=== PATIENT | male | born 1965 | race Caucasian/White ===

== ENCOUNTER 2022-09-03 07:58 | Day surgery (SDC) | payer OTHER, MEDICAID ==
[2022-09-01 11:58] LABS: MEAN CORPUSCULAR HEMOGLOBIN 29.4 PG (27.0-31.0); MEAN CORPUSCULAR HGB CONC 32.5 g/dL (33.0-36.5); MEAN CORPUSCULAR VOLUME 90.4 FL (78-98); MEAN PLATELET VOLUME 8.4 FL (7.4-10.4); NEUTROPHILS % (AUTO) 68.2 % (42-75); PRE OP HEMOGLOBIN 12.4 g/dL (14.0-17.9); PRE OP PLATELET COUNT 249 X10'3 (140-440); RED CELL DISTRIBUTION WIDTH 15.2 % (11.5-14.5)
[2022-09-01 11:59] LABS: BASOPHILS # (AUTO) 0.1 X10'3 (0-0.2); BASOPHILS % (AUTO) 0.8 % (0-1); EOSINOPHILS # (AUTO) 0.2 X10'3 (0-0.9); EOSINOPHILS % (AUTO) 2.8 % (0-6); LYMPHOCYTES # (AUTO) 1.6 X10'3 (1.1-4.8); MONOCYTES # (AUTO) 0.7 X10'3 (0-0.9); MONOCYTES % (AUTO) 8.2 % (2-12); NEUTROPHILS # (AUTO) 5.6 X10'3 (1.8-7.7)
[2022-09-01 12:13] LABS: ALBUMIN 3.5 G/DL (3.4-5.0); ALBUMIN/GLOBULIN RATIO 0.9 (1.1-1.5); ALKALINE PHOSPHATASE 105 IU/L (46-116); BLOOD UREA NITROGEN 11 MG/DL (7-18); BUN/CREATININE RATIO 14.7 (5.4-32.0); CALCIUM 8.4 MG/DL (8.5-10.1); CHLORIDE 103 MMOL/L (99-107); CREATININE 0.75 MG/DL (0.60-1.10); PRE OP ALT 26 U/L (30-65); PRE OP ANION GAP 4 (8-16); PRE OP AST 20 U/L (10-37); PRE OP BILIRUB, TOTAL 0.2 MG/DL (0.0-1.0); PRE OP GLUCOSE 96 MG/DL (70-104); PRE OP POTASSIUM 4.4 MMOL/L (3.4-5.1); PRE OP SODIUM 137 MMOL/L (135-145); TOTAL CARBON DIOXIDE 29.9 MMOL/L (24-32); TOTAL PROTEIN 7.5 G/DL (6.4-8.2); eGFR > 90 ML/MIN
[2022-09-03] VITALS (7 sets, daily range): BP systolic 102–121; BP diastolic 66–83
[~2022-09-03] VITALS: Ht 180.3 cm; Wt 140.0 kg
[~2022-09-03 07:58] MED LIST: BROM2.5T5 PO; CYAN-34 PO; GABA600T13 PO; HYDR50TA65 PO; LEVO100T9 PO; LEVO200T8 PO; LISI5TAB22 PO; LORA10TA7 PO; METF-1203 PO; OLOP5DRO26 EACHEYE; OMEG-220 PO; PRIM250T8 PO; PRIM50TA5 PO; PROP10DR15 EACHEYE; RISP2TAB85 PO; SERT-434 PO; SIMV-45 PO; TRAZ-256 PO; ceFAZolin inj. 2,000 MG in dextrose 5%-water 100 ML IV ONE; famotidine 20mg tablet PO ONE; ringers solution, lacted 1,000 ML IV SCH
[2022-09-03] MEDS ORDERED: morphine 4 MG/ML inj SYRINge IV PRN (10:30)
[2022-09-03] MEDS ORDERED: ringers solution, lacted 1,000 ML IV SCH (10:30)
[2022-09-03] MEDS ORDERED: meperidine/PF 25mg/ml syringe IV PRN (10:30)
[2022-09-03] MEDS ORDERED: proCHLORperazine 10 MG/2 ml inj IV PRN (10:30)
[2022-09-03] MEDS ORDERED: hydrALAZINE 20mg/ml inj. IV PRN (10:30)
[2022-09-03] MEDS ORDERED: fentaNYL/PF 50MCG/1 ML 2ML syringe IV PRN ×2 (10:30)
[2022-09-03] MEDS ORDERED: ondansetron/PF 4mg/2ml inj IV PRN (10:30)
[2022-09-03] MEDS ORDERED: acetaminophen 1,000mg/100ml IV 100 ML IV PRN (10:30)
[2022-09-03] MEDS ORDERED: morphine 2 MG/ML inj. syringe IV PRN (10:30)
[2022-09-03] MEDS ORDERED: labetalol 20mg/4ml (5mg/ml) syringe IV PRN (10:30)
[2022-09-03] MEDS ORDERED: LIDOcaine 0.5% (5mg/ml) 50ml vial ONE (10:31)
[2022-09-03] MEDS ORDERED: FENTANYL CITRATE/PF 50 MCG/1 ML VIAL ONE (12:01)
[2022-09-03] MEDS ORDERED: BUPIVAcaine 0.5% inj/PF 30 ML ONE (12:12)
[2022-09-03] MEDS ORDERED: midazolam 1 mg/ML 2ml injection ONE (12:12)
[2022-09-03] MEDS ORDERED: BUPIVAcaine 0.5% inj/PF 30 ml vial IJ ONE (12:21)
[2022-09-03] MEDS ORDERED: ceFAZolin 1000mg inj ONE (12:23)
[2022-09-03] MEDS ORDERED: propofol inj 20 ML IV ONE ×3 (12:23→12:38)
--- NOTE | 2022-09-03 12:42 | NUR ---
Received from OR via [facility], accompanied by Anesthesiologist DR MUNROE and report given by Anesthesiologist AND CHARRER. PT AWAKE, DENIES PAIN, LEFT ELBOW AND HAND/WRIST W/BETSY WRAP COVERING INCISIONS/DRSG'S CDI. FINGERS PWD, MEDICAL SUPPORT SPECIALIST 1-2 SECONDS. Addendum: 09/03/22 at 1257 by Viviane Rodriguez RN Amended: Links added.
--- NOTE | 2022-09-03 13:32 | NUR ---
PT UP AND ABLE TO AMBULATE SAFELY W/HIS CANE. D/C INSTRUCTIONS GIVEN AND GONE OVER W/PT WHO VERBALIZED UNDERSTANDING. PT D/CD TO HOME VIA W/C TO [facility] W/O INCIDENT. Addendum: 09/03/22 at 1345 by Viviane Rodriguez RN Amended: Links added.
== END 2022-09-03 13:32 | disposition home or self-care (01) ==
LOC: PAS 07:58
PROVIDERS: ATTEND Orthopaedic Surgery Hand Surgery
DX: G56.02 Carpal tunnel syndrome, left upper limb (principal); Z79.899 Other long term (current) drug therapy; Z98.890 Other specified postprocedural states; Z87.891 Personal history of nicotine dependence; G47.30 Sleep apnea, unspecified; I10 Essential (primary) hypertension; E11.9 Type 2 diabetes mellitus without complications; F41.8 Other specified anxiety disorders; M19.90 Unspecified osteoarthritis, unspecified site; Z88.8 Allergy status to other drugs, medicaments and biological substances
CPT/HCPCS: 36415; 64721; 80053; 82948; 85025; 93005; A6222; J0690; J2250; J2704; J3010; J3490; J7030; J7060; J7120; S0020; Z7506; Z7512; A4215; A7000

== ENCOUNTER 2022-10-01 08:42 | Day surgery (SDC) | payer OTHER, MEDICAID ==
[2022-09-23 10:27] LABS: BASOPHILS # (AUTO) 0.1 X10'3 (0-0.2); BASOPHILS % (AUTO) 1.1 % (0-1); EOSINOPHILS # (AUTO) 0.2 X10'3 (0-0.9); EOSINOPHILS % (AUTO) 3.3 % (0-6); LYMPHOCYTES # (AUTO) 1.8 X10'3 (1.1-4.8); MEAN CORPUSCULAR HEMOGLOBIN 29.7 PG (27.0-31.0); MEAN CORPUSCULAR HGB CONC 33.1 g/dL (33.0-36.5); MEAN CORPUSCULAR VOLUME 89.8 FL (78-98); MEAN PLATELET VOLUME 7.9 FL (7.4-10.4); MONOCYTES # (AUTO) 0.8 X10'3 (0-0.9); MONOCYTES % (AUTO) 10.8 % (2-12); NEUTROPHILS # (AUTO) 4.6 X10'3 (1.8-7.7); NEUTROPHILS % (AUTO) 60.8 % (42-75); PRE OP HEMATOCRIT 38.3 % (42.0-52.0); PRE OP HEMOGLOBIN 12.7 g/dL (14.0-17.9); PRE OP PLATELET COUNT 254 X10'3 (140-440); RED BLOOD COUNT 4.26 X10'6 (4.70-6.10); RED CELL DISTRIBUTION WIDTH 15.1 % (11.5-14.5)
[2022-09-23 10:42] LABS: ALBUMIN 3.5 G/DL (3.4-5.0); ALKALINE PHOSPHATASE 119 IU/L (46-116); BLOOD UREA NITROGEN 10 MG/DL (7-18); BUN/CREATININE RATIO 12.8 (5.4-32.0); CALCIUM 8.4 MG/DL (8.5-10.1); CHLORIDE 101 MMOL/L (99-107); CREATININE 0.78 MG/DL (0.60-1.10); PRE OP ALT 25 U/L (30-65); PRE OP ANION GAP 7 (8-16); PRE OP AST 21 U/L (10-37); PRE OP BILIRUB, TOTAL 0.2 MG/DL (0.0-1.0); PRE OP GLUCOSE 93 MG/DL (70-104); PRE OP POTASSIUM 4.5 MMOL/L (3.4-5.1); PRE OP SODIUM 136 MMOL/L (135-145); TOTAL CARBON DIOXIDE 27.7 MMOL/L (24-32); eGFR > 90 ML/MIN
[~2022-10-01] VITALS: Ht 180.3 cm; Wt 143.7 kg
[2022-10-01] VITALS (8 sets, daily range): BP systolic 93–114; BP diastolic 47–69
[~2022-10-01 08:42] MED LIST changes: +BUPIVAcaine 0.5% inj/PF 30 ML ONE; -ceFAZolin inj. 2,000 MG in dextrose 5%-water 100 ML IV ONE
--- NOTE | 2022-10-01 09:30 | NUR ---
PT PREPARED FOR SURGERY, IV'S X 2 STARTED WITHOUT DIFFICULTY. MED RECONCILIATION COMPLETED. DR JACK AT BEDSIDE, RIGHT HAND MARKED. ORDERS FAXED TO PHARMACY. ROSELYN ORDERED FROM PHARMACY.
[2022-10-01] MEDS ORDERED: ceFAZolin inj. 3,000 MG in normal saline 100ml IV soln 100 ML IV ONE (09:57)
[2022-10-01] MEDS ORDERED: ringers solution, lacted 1,000 ML IV SCH (10:30)
[2022-10-01] MEDS ORDERED: ondansetron/PF 4mg/2ml inj IV PRN (10:30)
[2022-10-01] MEDS ORDERED: proCHLORperazine 10 MG/2 ml inj IV PRN (10:30)
[2022-10-01] MEDS ORDERED: labetalol 20mg/4ml (5mg/ml) syringe IV PRN (10:30)
[2022-10-01] MEDS ORDERED: hydrALAZINE 20mg/ml inj. IV PRN (10:30)
[2022-10-01] MEDS ORDERED: acetaminophen 1,000mg/100ml IV 100 ML IV PRN (10:30)
[2022-10-01] MEDS ORDERED: fentaNYL/PF 50MCG/1 ML 2ML syringe IV PRN ×2 (10:30)
[2022-10-01] MEDS ORDERED: fentaNYL/PF 50MCG/1 ML 2ML syringe ONE (11:14)
[2022-10-01] MEDS ORDERED: 0.9 % SODIUM CHLORIDE 10 ML VIAL ONE ×4 (11:24)
[2022-10-01] MEDS ORDERED: LIDOcaine 2% (20mg/ml) 5ml vial ONE ×3 (11:24)
[2022-10-01] MEDS ORDERED: midazolam 1 mg/ML 2ml injection ONE (11:24)
[2022-10-01] MEDS ORDERED: BUPIVAcaine 0.5% inj/PF 30 ml vial IJ ONE (11:31)
[2022-10-01] MEDS ORDERED: propofol inj 20 ML IV ONE ×2 (11:47)
--- NOTE | 2022-10-01 11:54 | NUR ---
Received from OR via [facility], accompanied by Anesthesiologist DR MUNROE and report given by Anesthesiolgist. PT PRESENTS WITH PIV 20G LEFT HAND, DRESSING ON RIGHT ELBOW AND RIGHT HAND/WRIST CDI. VSS. Addendum: 10/01/22 at 1210 by Marialuisa Garces RN RN Amended: Links added.
--- NOTE | 2022-10-01 12:44 | NUR ---
ALL DISCHARGE CRITERIA HAS BEEN MET. VSS, PAIN AT A TOLERABLE LEVEL, VOIDING AND ABLE TO SAFELY AMBULATE AND TRANSFER SELF. IV TAKEN OUT WITHOUT ANY COMPLICATIONS. ALL DISCHARGE INSTRUCTIONS COVERED WITH PATIENT AND ALL QUESTIONS ANSWERED. PATIENT TAKEN OUT VIA WHEELCHAIR TO PERSONAL VEHICLE WHERE FAMILY/FRIEND DROVE PATIENT HOME. Addendum: 10/01/22 at 1249 by Marialuisa Garces RN, RN Amended: Links added.
== END 2022-10-01 12:44 | disposition home or self-care (01) ==
LOC: PAS 08:42
PROVIDERS: ATTEND Orthopaedic Surgery Hand Surgery
DX: G56.01 Carpal tunnel syndrome, right upper limb (principal); G56.21 Lesion of ulnar nerve, right upper limb; E78.00 Pure hypercholesterolemia, unspecified; I10 Essential (primary) hypertension; G47.33 Obstructive sleep apnea (adult) (pediatric); F41.9 Anxiety disorder, unspecified; F32.9 Major depressive disorder, single episode, unspecified; E11.9 Type 2 diabetes mellitus without complications; E66.9 Obesity, unspecified; Z68.41 Body mass index [BMI] 40.0-44.9, adult; Z98.890 Other specified postprocedural states; Z87.891 Personal history of nicotine dependence; Z79.899 Other long term (current) drug therapy; Z88.8 Allergy status to other drugs, medicaments and biological substances; Z85.850 Personal history of malignant neoplasm of thyroid
CPT/HCPCS: 36415; 64718; 64721; 80053; 82948; 85025; J0690; J2250; J2704; J3010; J3490; J7030; J7120; S0020; Z7506; Z7512; A4215; A6449; A7000

== ENCOUNTER 2023-10-17 07:30 | Day surgery (SDC) | payer OTHER, MEDICAID ==
[2023-10-12 14:34] LABS: BASOPHILS # (AUTO) 0.1 X10'3 (0-0.2); BASOPHILS % (AUTO) 0.8 % (0-1); EOSINOPHILS # (AUTO) 0.1 X10'3 (0-0.9); EOSINOPHILS % (AUTO) 1.3 % (0-6); LYMPHOCYTES # (AUTO) 2.2 X10'3 (1.1-4.8); LYMPHOCYTES % (AUTO) 23.3 % (21-51); MEAN CORPUSCULAR HEMOGLOBIN 28.7 PG (27.0-31.0); MEAN CORPUSCULAR HGB CONC 32.2 g/dL (33.0-36.5); MEAN PLATELET VOLUME 8.3 FL (7.4-10.4); MONOCYTES % (AUTO) 10.9 % (2-12); NEUTROPHILS % (AUTO) 63.7 % (42-75); PRE OP HEMATOCRIT 39.6 % (42.0-52.0); PRE OP HEMOGLOBIN 12.8 g/dL (14.0-17.9); PRE OP PLATELET COUNT 271 X10'3 (140-440); PRE OP WHITE BLOOD COUNT 9.5 10'3 (4.8-10.8); RED BLOOD COUNT 4.45 X10'6 (4.70-6.10); RED CELL DISTRIBUTION WIDTH 15.5 % (11.5-14.5)
[2023-10-12 15:04] LABS: ALBUMIN 3.4 G/DL (3.4-5.0); ALBUMIN/GLOBULIN RATIO 0.9 (1.1-1.5); ALKALINE PHOSPHATASE 111 IU/L (46-116); BLOOD UREA NITROGEN 14 MG/DL (7-18); BUN/CREATININE RATIO 17.9 (10.0-20.0); CALCIUM 8.7 MG/DL (8.5-10.1); CHLORIDE 104 MMOL/L (99-107); CREATININE 0.78 MG/DL (0.60-1.10); PRE OP ALT 20 U/L (30-65); PRE OP ANION GAP 12 (8-16); PRE OP AST 14 U/L (10-37); PRE OP BILIRUB, TOTAL 0.2 MG/DL (0.0-1.0); PRE OP GLUCOSE 96 MG/DL (70-104); PRE OP POTASSIUM 4.5 MMOL/L (3.4-5.1); PRE OP SODIUM 142 MMOL/L (135-145); TOTAL CARBON DIOXIDE 26.3 MMOL/L (24-32); TOTAL PROTEIN 7.4 G/DL (6.4-8.2); eGFR > 90 ML/MIN
[~2023-10-17] VITALS: Ht 180.3 cm; Wt 156.0 kg
[2023-10-17] VITALS (9 sets, daily range): BP systolic 110–134; BP diastolic 63–90; PULSE 68–90; RESP 11–16; TEMP 98.8; O2SAT 91–98
[2023-10-17] MEDS: ceFAZolin inj. 3,000 MG in normal saline 100ml IV soln 100 ML IV ONE (05:30)
[~2023-10-17 07:30] MED LIST changes: -BUPIVAcaine 0.5% inj/PF 30 ML ONE; +MODA100T31 PO; +OLAN1TAB3 PO; -OLOP5DRO26 EACHEYE; -PROP10DR15 EACHEYE; -famotidine 20mg tablet PO ONE; -ringers solution, lacted 1,000 ML IV SCH
[2023-10-17] MEDS ORDERED: LIDOcaine 1% 30ml preserv. free vial ONE (08:39)
[2023-10-17] MEDS: ringers solution, lacted 1,000 ML IV SCH (09:18)
[2023-10-17] MEDS: famotidine 20mg tablet PO ONE (09:18)
[2023-10-17] MEDS ORDERED: fentaNYL/PF 50MCG/1 ML 2ML syringe ONE ×2 (09:34→10:35)
[2023-10-17] MEDS ORDERED: MIDAZolam 1 MG/ML 5ML VIAL ONE (09:35)
[2023-10-17] MEDS ORDERED: ketorolac trometh. 30mg/ml inj. ONE (09:35)
[2023-10-17] MEDS ORDERED: ketamine 50mg/5ml syringe ONE (10:37)
[2023-10-17] MEDS: BUPIVAcaine/PF 2.5mg/ml (0.25%) 10ml vial ONE (10:42)
[2023-10-17] MEDS ORDERED: propofol inj 20 ML IV ONE (10:53)
== END 2023-10-17 12:10 | disposition home or self-care (01) ==
LOC: PAS 07:30
PROVIDERS: ATTEND Orthopaedic Surgery Hand Surgery
DX: G56.22 Lesion of ulnar nerve, left upper limb (principal); I10 Essential (primary) hypertension; E11.9 Type 2 diabetes mellitus without complications; E66.9 Obesity, unspecified; G47.33 Obstructive sleep apnea (adult) (pediatric); I20.9 Angina pectoris, unspecified; G20.A1 Parkinson's disease without dyskinesia, without mention of fluctuations; F41.9 Anxiety disorder, unspecified; F32.A Depression, unspecified; M19.90 Unspecified osteoarthritis, unspecified site; Z87.891 Personal history of nicotine dependence; Z85.850 Personal history of malignant neoplasm of thyroid; Z79.890 Hormone replacement therapy; Z79.84 Long term (current) use of oral hypoglycemic drugs; Z79.891 Long term (current) use of opiate analgesic; Z79.899 Other long term (current) drug therapy; Z90.89 Acquired absence of other organs; Z98.890 Other specified postprocedural states; Z68.42 Body mass index [BMI] 45.0-49.9, adult; Z88.6 Allergy status to analgesic agent; Z88.8 Allergy status to other drugs, medicaments and biological substances
CPT/HCPCS: 25150; 36415; 64718; 80053; 82948; 85025; 93005; J0690; J1885; J2250; J2704; J3010; J3490; J7030; J7120; Z7506; Z7512; A4215; A4618; A6446; A6449; A7000